=== PATIENT | female | born 1940 | race Caucasian/White ===

== ENCOUNTER 2016-08-01 09:28 | Observation (INO) | payer MEDICARE, OTHER ==
[~2016-08-01] VITALS: Ht 165.1 cm; Wt 81.8 kg
[2016-08-01] VITALS (10 sets, daily range): BP systolic 128–175; BP diastolic 50–114; PULSE 58–75; RESP 11–18; O2SAT 95–98
[~2016-08-01 09:28] MED LIST: AMLO5TAB2 PO; ASPI325T32 PO; ATOR40TA69 PO; CARV12.52 PO; CHOL5000 PO; CLOP75TA28 PO; CRAN200C2 PO; CYCL1DRO BOTH_EYES; D-MA1POW PO; FOLI0.4T2 PO; GABA600T2 PO; GLUT500T8 PO; HYDR-3090 PO; HYDR200T5 PO; LOSA50TA37 PO; MAGN500C4 PO; MELA1TAB11 PO; MULT-666 PO; NITR0.4T SL; UBID300C PO
--- NOTE | 2016-08-01 10:34 | DRSVH ---
PROCEDURE: X-RAY CHEST ONE VIEW, PORTABLE ([id number]) INDICATIONS: DIZZY TECHNIQUE: One view of the chest was acquired. COMPARISON: 08/02/2015 FINDINGS: Surgical changes and devices: None. Lungs and pleura: No pleural effusions or pneumothorax. Lungs are clear. Mediastinum: Mediastinal contours appear normal. Heart size is normal. Bones and chest wall: No suspicious bony lesions. Overlying soft tissues appear unremarkable. IMPRESSION: No acute cardiopulmonary abnormality Dictated by: Dwayne Ayala M.D. on 08/01/2016 at 10:31 Approved by: Dwayne Ayala M.D. on 08/01/2016 at 10:32
[2016-08-01 10:55] LABS: BASOPHILS % (AUTO) 1.6 % (0-3); EOSINOPHILS % (AUTO) 4.6 % (0-5); MONOCYTES % (AUTO) 10.9 % (4-12); Mean Corpuscular Hemoglobin 30.8 pg (27.0-35.0); Mean Corpuscular Volume 93.2 fL (81-100); NEUTROPHILS % (AUTO) 54.4 % (40-74); Platelet Count 325 bil/L (150-400)
[2016-08-01 11:16] LABS: TROPONIN T 0.01 ug/L (0.0-0.011)
[2016-08-01 11:27] LABS: Magnesium 2.4 mg/dL (1.6-2.6)
[2016-08-01 11:39] LABS: APPEARANCE,URINE HAZY (CLEAR,HAZY); COLOR,URINE STRAW (YELLOW); OCCULT BLOOD,URINE TRACE (NEGATIVE)
[2016-08-01 11:40] LABS: UROBILINOGEN,URINE NORMAL (NORMAL)
[2016-08-01] MEDS: 0.9% Sodium Chloride 1,000 ML IV SCH ×4 (11:43→23:30)
--- NOTE | 2016-08-01 13:15 | DRSVH ---
PROCEDURE: CT BRAIN WITHOUT CONTRAST ([id number]) INDICATIONS: possible stroke TECHNIQUE: Noncontrast 4.5 mm thick angled axial sections acquired from the foramen magnum to the vertex, with c oronal reformats. COMPARISON: None. FINDINGS: Image quality: Is , 07/30/2012, 06/23/2008 CSF spaces: Basal cisterns are patent. No extra-axial fluid collections. The ventricles are symmet roe in size and shape. Brain: No intracranial bleeds or masses. Ill-defined decreased attenuation left temporal lobe. There is cerebral volume loss for age, with resultant ventricular and sulcal prominence. There are perive ntricular and deep white matter chronic small vessel ischemic changes. Chronic lacunar infarct right basal ganglia. There is intracranial internal carotid artery atherosclerosis. Skull and face: Calvarium and visualized facial bones appear intact, without suspicious lesions. Sinuses: Visualized sinuses and mastoids are clear. IMPRESSION: 1. No intracranial hemorrhage. 2. There is mild decreased attenuation in the left temporal lobe which could represent acute ischemi a. Edema from cerebritis can also cause this appearance. 3. Age related cerebral atrophy, primarily frontal and unchanged. 4. Chronic lacunar infarct right basal ganglia again noted. Dictated by: Dwayne Ayala M.D. on 08/01/2016 at 13:10 Approved by: Dwayne Ayala M.D. on 08/01/2016 at 13:14
[2016-08-01] MEDS ORDERED: Ondansetron 2 mg/mL 2 mL Inj IVPUSH PRN ×2 (14:35→15:05)
[2016-08-01] MEDS ORDERED: Alum-Mag Hydrox-Simeth 30 mL Suspension PO PRN ×2 (14:35→15:05)
[2016-08-01] MEDS ORDERED: Nitroglycerin 2% 1 Gm Ointment TOPICAL ONE (14:40)
--- NOTE | 2016-08-01 14:45 | ED.REPORT ---
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 Yesterday that patient had a bout of chest pain occurring at rest and took a nitro, this is described as family as not entirely unusual, the patient typically takes a nitro once every 2-3 weeks for chest pain occurring at rest. The patient states that she has been sleeping more than normal and family describes her as slurring words but answering questions appropriately. The patient has a neurogenic bladder requiring in and out cath and believes she may have a UTI after yesterday discovering cloudy urine. The patient had a bout of diarrhea yesterday which is unusual as well as a mild nausea today. The patient also mentioned pain behind her eye occurring yesterday and lasting 1 minute, without any reported change in her vision. Family has not noticed unilateral weakness. Nursing Notes Stated Complaint: DIZZINESS Chief Complaint: Chest Pain Nursing Notes Reviewed: Yes Allergies: Coded Allergies: Contrast Media (Verified Allergy, Severe, 08/01/16) codeine (Verified Allergy, Severe, 08/01/16) lactose (Verified Allergy, Severe, 08/01/16) chocolate flavor (Verified Allergy, Mild, HIVES, 08/01/16) Iodine and Iodide Containing Produc (Verified Allergy, Unknown, 08/01/16) Sulfa (Sulfonamide Antibiotics) (Verified Allergy, Unknown, 08/01/16) hydrocodone (Verified Adverse Reaction, Severe, 08/01/16) PT STATES SHE CAN TAKE BRAND VICODIN HOWEVER Opium (Verified Adverse Reaction, Intermediate, 08/01/16) ITCHING FROM OPIATE AGONISTS Scheduled Amlodipine (Amlodipine) 5 Mg Tablet 10 MG PO HS Aspirin (Aspirin) 325 Mg Tablet 325 MG PO DAILY Atorvastatin Calcium (Atorvastatin Calcium) 40 Mg Tablet 40 MG PO HS Carvedilol (Carvedilol) 12.5 Mg Tablet 12.5 MG PO BID Cholecalciferol (Vitamin D3) (Vitamin D3) 5,000 Unit Capsule 5,000 UNIT PO DAILY Clopidogrel (Clopidogrel) 75 Mg Tablet 75 MG PO DAILY Cranberry Extract (Cranberry) 200 Mg Capsule 600 MG PO BID Cyclosporine (Restasis) 1 Each Droperette 1 EACH BOTH_EYES BID D-Mannose (D-Mannose) 1 Gm Powder Unknown Dose PO TID Folic Acid (Folic Acid) 0.4 Mg Tablet 0.4 MG PO DAILY Gabapentin (Gabapentin) 600 Mg Tablet 600 MG PO BID to TID Glutamine (l-Glutamine) 500 Mg Tablet 500 MG PO DAILY Hydroxychloroquine Sulfate (Hydroxychloroquine Sulfate) 200 Mg Tablet 200 MG PO DAILY Losartan Potassium (Losartan Potassium) 50 Mg Tablet 50 MG PO BID Magnesium Oxide (Magnesium) 500 Mg Capsule 500 MG PO DAILY Multivitamin (Once Daily) 1 Each Tablet 1 EACH PO DAILY Ubidecarenone (Co Q-10) 300 Mg Capsule 300 MG PO DAILY Scheduled PRN Hydrocodone-Acetaminophen 5-300 mg (Hydrocodone-Acetaminophen 5-300 mg) 1 Each Tablet 1 TABLET PO q6 hours PRN PRN For Pain Melatonin/Pyridoxine (Melatonin 3 mg Tablet) 1 Each Tablet 1 EACH PO HS PRN PRN For Sleep Nitroglycerin SL (Nitrostat) 0.4 Mg Tab.subl 0.4 MG SL Q5MIN PRN PRN For Chest Pain General Time Seen by MD: 10:20 Chief Complaint Not feeling well, Other (dysarthria and fatigue) Hx Obtained From: Patient, Spouse, Daughter Arrived By: Walk-in Sudden in Onset?: No Onset Occurred: 2 days ago Symptom Duration: Since onset Location: : Chest Quality: Heaviness, Painful Radiation: : Does not radiate Severity: Current: No pain currently Severity: Maximum: Mild Associated with: Reports: Speech abnormal Recent Healthcare: Recent doctor visit Similar Sx Previous: Yes Past Medical History Past Medical History 1. Hypertension. 2. Mild dyslipidemia. Cholesterol 182, HDL 43, cholesterol/HDL ratio 4.2, LDL 111 (June 24, 2008). The patient is not currently on statin therapy. 3. Peripheral arterial disease. In 1989, the patient underwent end arterectomy for severe atherosclerosis of the aorta/iliac bifurcation. 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 The patient has lost control of her bowel and bladder. She can stand for pivots and transfers. 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 4. Normal nuclear medicine stress test (January 14, 2008). 5. Aortic valve disease. Echocardiogram (07/31/2012) showed ejection fraction estimated to be 60-65%. The aortic valve is sclerotic and shows some degree of functional abnormality. Moderate aortic regurgitation. No significant change since previous study in 2008 6. Questionable rheumatoid arthritis. 7. CVA 8. CAD Reports: Coronary artery disease, GERD, Hyperlipidemia, Hypertension, Stroke Reports: Thyroid disease, Urinary tract infection Past Surgical History aortic embolectomy femoral artery shunt placement Reports: Angioplasty Family History Family history is extensively positive for coronary artery disease. Smoking History Former Smoker Social History Stopped smoking in 1989. She does not consume alcohol. She lives in a private residence. Alcohol Use: Denies alcohol use Drug Use: Denies drug use Other Social History: Good social support Ambulatory Status Wheelchair Review of Systems Full Review of Systems Constitutional: Denies: Chills, Fever Eyes: Reports: Eye pain right (not currently, occurred for 1 hr 07/31/16), Denies: Blurred bilateral, Visual loss bilateral Ears / Nose / Throat: Reports: Nasal congestion, Denies: Ear ringing bilateral, Hearing loss bilateral, Sore throat Respiratory: Reports: Non-productive cough, Denies: Hemoptysis, Pleuritic pain, Shortness of breath Cardiovascular: Reports: Chest pain, Edema, Denies: Palpitations GI: Reports: Diarrhea, Nausea, Denies: Abdominal pain, Hematemesis, Hematochezia, Vomiting Female: Denies: Flank pain, Hematuria, Incontinence Musculoskeletal: Denies: Extremity pain, Extremity swelling Hematologic: Denies Bleeding, Denies Bruising Endocrine: Denies: Heat intolerance, Weight gain, Weight loss Skin: Denies Rash, Denies Unexplained bruises Allergy / Immune: Reports: Rhinorrhea, Denies: Hives, Itching Neurologic: Reports: Lightheaded, Slurred speech, Denies: Dizziness, Focal weakness, Headache, Spinning sensation, Syncope Psychiatric: Denies: Agitation, Confusion Complete sys rev & neg: except as marked. Physical Exam Vital Signs Vital Signs Date Time Temp Pulse Resp B/P Pulse Ox O2 Delivery O2 Flow Rate FiO2 08/01/16 14:30 75 14 149/68 96 Nasal Cannula 2 08/01/16 14:14 68 14 140/114 97 Nasal Cannula 2 08/01/16 13:21 65 15 154/80 96 Nasal Cannula 08/01/16 11:56 58 11 143/55 98 Nasal Cannula 2 08/01/16 09:32 36.3 67 15 175/80 95 Room Air Initial VS: Reviewed General/Constitutional: Awake, Alert (when speaking directly to patient), No acute distress, Cooperative, Not toxic appearing Alertness: Positive: Somnolent (when interviewing family), Negative: Confused, Disoriented Appearance / Presentation: Positive: Debilitated Head / Eyes: Normocephalic, PERRL, EOMI, No scleral icterus, Conjunctiva NL ENT: Airway patent, Mucous membranes moist, Pharynx NL Neck: Supple, No meningismus, Full range of motion, No swelling, Non-tender, No masses Respiratory / Chest: Breath sounds = bilat, No respiratory distress, No rhonchi , No wheezing, No stridor, No chest tenderness Diminished Breath Sounds: Positive: Decreased bilateral Cardiovascular: Heart rate NL, Regular rhythm, Peripheral circulation NL, Pulses = bilaterally Heart Sounds / Murmur: Positive: Systolic murmur present.. Lower Ext Edema: Positive: Right 1+ Abdomen: Soft, Non-tender, No guarding, No rebound, BS normoactive Neurologic: Oriented X3, Speech NL, CN II - XII intact, Memory NL Focal Weakness: Positive: Lower extremity bilat (reported chronic), Negative: Pronator drift L, Pronator drift R no new focal neuro deficits Mini Mental status exam - correct serial 7s, correct spelling forwards and backwards, correct clock draw, correct 3 object recall at 2 and 5 minutes, correct following of directions Psychiatric: Affect NL, Mood NL, Cognitive function NL, Judgment/insight NL, Thought content NL Abnormal Mood/Affect: Positive: Labile Interpretation & Diagnostics Lab Results Interpretation Result Diagram: 08/01/16 1045 08/01/16 1045 Test 08/01/16 10:45 08/01/16 11:26 08/01/16 14:50 White Blood Count 6.3th/mm3 (3.8-10.1) Red Blood Count 4.55mil/mm3 (3.90-5.20) Hemoglobin 14.0g/dL (12.0-15.6) Hematocrit 42.4% (35.0-46.0) Mean Corpuscular Volume 93.2fL (81-100) Mean Corpuscular Hemoglobin 30.8pg (27.0-35.0) Mean Corpuscular Hemoglobin Concent 33.0% (32.0-37.0) Red Cell Distribution Width 13.6% (12.3-15.4) Platelet Count 325bil/L (150-400) Neutrophils (%) (Auto) 54.4% (40-74) Lymphocytes (%) (Auto) 28.3% (14-46) Monocytes (%) (Auto) 10.9% (4-12) Eosinophils (%) (Auto) 4.6% (0-5) Basophils (%) (Auto) 1.6% (0-3) Sodium Level 141mEq/L (134-144) Potassium Level 4.1mEq/L (3.5-5.2) Chloride Level 104mEq/L (97-108) Carbon Dioxide Level 25mmol/L (18-29) Blood Urea Nitrogen 11mg/dL (8-27) Creatinine 0.62mg/dL (0.57-1.00) Estimat Glomerular Filtration Rate 134mL/min (>59) Glucose Level 96mg/dL (60-99) Calcium Level 9.2mg/dL (8.5-10.1) Magnesium Level 2.4mg/dL (1.6-2.6) Total Bilirubin 0.3mg/dL (0.0-1.2) Aspartate Amino Transf (AST/SGOT) 18U/L (0-50) Alanine Aminotransferase (ALT/SGPT) 10U/L (0-32) Alkaline Phosphatase 106U/L (25-165) Total Protein 6.9g/dL (6.4-8.4) Albumin 4.0g/dL (3.4-5.0) Procalcitonin 0.05ng/mL (0.00-0.08) Urine Color Straw (YELLOW) Urine Appearance Hazy (CLEAR,HAZY) Urine pH 7.0 (5.0-8.0) Urine Specific [place] 1.005 (1.003-1.035) Urine Protein Negativemg/dL (NEG,TRACE) Urine Glucose (UA) Negativemg/dL (NEGATIVE) Urine Ketones Negativemg/dL (NEGATIVE) Urine Occult Blood Trace (NEGATIVE) Urine Nitrite Negative (NEGATIVE) Urine Bilirubin Negative (NEGATIVE) Urine Urobilinogen Normalmg/dL (NORMAL) Urine Leukocyte Esterase Trace (NEGATIVE) Urine RBC 0-2/hpf (0-2) Urine WBC 0-5/hpf (0-5) Urine Epithelial Cells Occasional/hpf (NONE-MOD) Urine Crystals None seen (NONE SEEN) Urine Bacteria Moderate/hpf (NONE-FEW) Urine Hyaline Casts None/lpf (NONE) Urine Granular Casts None seen (NONE SEEN) Urine Waxy Casts None seen (NONE SEEN) Urine Red Blood Cell Casts None seen (NONE SEEN) Urine White Blood Cell Casts None seen (NONE SEEN) Urine Mucus None seen (None Seen) Urine Trichomonas None seen (NONE SEEN) Urine Yeast None (NONE SEEN) Urinalysis Comment None Urine Culture Reflexed Indicated Re-Eval/Medical Decision Med Decision/Clinical Course 76yoF with known significant vascular disease presents with two days of increasing lethergy and report of slurred speech. CBC, CMP, and UA are negative for UTI, Anemia, and electrolyte abnormalities. NIH stroke scale is 0 with lower extremities difficult to test due to paraplegia. Patient has also had high blood pressures this week and some chest pain at rest which is not out of the ordinary per history. Troponin and EKG negative for cardiac ischemia. CT shows likely diagnosis of possible stroke v cerebritis. Patient has had one recurrence in the ED of chest pain relieved by a single Nitro. Repeat troponin pending. For ischemic stroke >24hr no clinical indicated for permissive HTN, so one time Nitro paste patch placed. Discharge & Departure Primary Impression: CVA (cerebral vascular accident) Additional Impressions: Unstable angina Aortic stenosis Ruled Out: Myocardial infarct Disposition: ADMITTED TO HOSPITAL Discharge Condition All VS Reviewed: Yes Condition: Stable Referrals: OTHER,PHYSICIAN (PCP) (Family) Attending Statement The patient was seen and examined together with Dr. Santoro on 08/01/16 and I have added additional information to the note above. Risk Factors NIH Stroke Scale Level of Consciousness: Alert and responsive (0) Ask Month & Age: Both questions right (0) Open/Close Eyes/Hand Bioinformatics Specialist: Performs both tasks (0) Horizontal EO Movements: None (0) Visual Youssef: No visual loss (0) Facial Palsy: Normal symmetry (0) Right Arm Motor Drift (10s): No drift 10 sec (0) Left Arm Motor Drift (10s): No drift 10 sec (0) Right Leg Motor Drift (5s): Untestable (0) (parapeligia) Left Leg Motor Drift (5s): Untestable (0) (parapalegia) Limb Ataxia FNF/Heel-Mcgill: No ataxia (0) (in upper extremities, unable to assess LE) Sensation (Arms/Legs/Face): No sensory loss (0) Language Aphasia: No aphasia, normal (0) Dysarthria: No dysarthria, normal (0) Extinction/Inattention: No exctinct/inattent (0) NIHSS Score: 0 Time NIHSS Performed: 11:20 Date NIHSS Performed: Aug 01, 2016 Everett Santoro DO Aug 01, 2016 10:47 Jim Verma DO Aug 01, 2016 15:13
[2016-08-01] MEDS ORDERED: Polyethylene Glycol (PEG) 17 Gm Powder PO PRN (15:05)
[2016-08-01] MEDS ORDERED: CALCIT PO (15:36)
[2016-08-01] MEDS ORDERED: FLUO120C4 TOPICAL (15:36)
[2016-08-01] MEDS ORDERED: MELA1TAB4 SL (15:36)
--- NOTE | 2016-08-01 15:43 | PCM.HPMED ---
Subjective Date of Service Aug 01, 2016 Primary Provider: Admitting Physician: Jose Luis Johnson MD Primary Care Physician: Other,Physician Attending Physician: Jose Luis Johnson MD Chief Complaint: Slurred speech, chest pain History of Present Illness: This is a 76 female with past medical history of functional paraplegia following endovascular surgical complication , hypertension, hyperlipidemia, coronary artery disease status post stenting. Patient presented to the hospital complaining about his speech for 2 days and not feeling herself and being lethargic as she was drunk. The patient states that she has been sleeping more than normal and family describes her as slurring words but answering questions appropriately. She was living alone chest pain that occur once yesterday, chest pain is retrosternal and radiated, 6 out of 10 intensity 2 minutes approximately. She called in about another episode of chest pain while in the emergency room. Any CT scan of the head showed lacunar infarct and decreased attenuation in the left temporal lobe which could represent acute ischemia. Edema from cerebritis can also cause this appearance. As the results and emergency room . Her NIH score was basically 0. Her systolic blood pressure was above 200. Patient is being admitted to the hospital for appropriate care , blood pressure management , chest pain and further workup. Review of Systems: Comprehensive review is negative except for what is described above in history of present illness Allergies Coded Allergies: Contrast Media (Verified Allergy, Severe, 08/01/16) codeine (Verified Allergy, Severe, 08/01/16) lactose (Verified Allergy, Severe, 08/01/16) chocolate flavor (Verified Allergy, Mild, HIVES, 08/01/16) Iodine and Iodide Containing Produc (Verified Allergy, Unknown, 08/01/16) Sulfa (Sulfonamide Antibiotics) (Verified Allergy, Unknown, 08/01/16) hydrocodone (Verified Adverse Reaction, Severe, 08/01/16) PT STATES SHE CAN TAKE BRAND VICODIN HOWEVER Opium (Verified Adverse Reaction, Intermediate, 08/01/16) ITCHING FROM OPIATE AGONISTS Home Medications ITCHING FROM OPIATE AGONISTS Scheduled Amlodipine (Amlodipine) 5 Mg Tablet 10 MG PO HS Aspirin (Aspirin) 325 Mg Tablet 325 MG PO DAILY Atorvastatin Calcium (Atorvastatin Calcium) 40 Mg Tablet 40 MG PO HS Carvedilol (Carvedilol) 12.5 Mg Tablet 12.5 MG PO BID Cholecalciferol (Vitamin D3) (Vitamin D3) 5,000 Unit Capsule 5,000 UNIT PO DAILY Clopidogrel (Clopidogrel) 75 Mg Tablet 75 MG PO DAILY Cranberry Extract (Cranberry) 200 Mg Capsule 600 MG PO BID Cyclosporine (Restasis) 1 Each Droperette 1 EACH BOTH_EYES BID D-Mannose (D-Mannose) 1 Gm Powder Unknown Dose PO TID Folic Acid (Folic Acid) 0.4 Mg Tablet 0.4 MG PO DAILY Gabapentin (Gabapentin) 600 Mg Tablet 600 MG PO BID to TID Glutamine (l-Glutamine) 500 Mg Tablet 500 MG PO DAILY Hydroxychloroquine Sulfate (Hydroxychloroquine Sulfate) 200 Mg Tablet 200 MG PO DAILY Losartan Potassium (Losartan Potassium) 50 Mg Tablet 50 MG PO BID Magnesium Oxide (Magnesium) 500 Mg Capsule 500 MG PO DAILY Multivitamin (Once Daily) 1 Each Tablet 1 EACH PO DAILY Ubidecarenone (Co Q-10) 300 Mg Capsule 300 MG PO DAILY PMH 1. Hypertension. 2. Mild dyslipidemia. 3. Peripheral arterial disease. 4. Normal nuclear medicine stress test (January 14, 2008). 5. Aortic valve disease. Echocardiogram (07/31/2012) showed ejection fraction estimated to be 60-65%. The aortic valve is sclerotic and shows some degree of functional abnormality. Moderate aortic regurgitation. No significant change since previous study in 2008 6. Questionable rheumatoid arthritis. 7. CVA 8. CAD 9. Coronary artery disease 10 GERD 11. Hyperlipidemia 12. Hypertension 13. Stroke Surgical History aortic embolectomy femoral artery shunt placement Reports: Angioplast Family History Family history reviewed and it is pertinent for coronary artery disease Social History Hx Alcohol Use: No Hx Substance Use: No Hx Tobacco Use: Yes (quit 1989) Smoking Status: Former Smoker Exam Vital Signs Vital Sign - Last Date Time Temp Pulse Resp B/P Pulse Ox O2 Delivery O2 Flow Rate FiO2 08/01/16 14:30 75 14 149/68 96 Nasal Cannula 2 08/01/16 09:32 36.3 Exam General: Comfortably no acute distress. HEENT: PERRL. Sclerae anicteric. Neck: Supple, no JVD no carotid bruit, no cervical lymphadenopathy. Chest: Respiratory effort, no chest wall tenderness. Lung: Clear bilaterally no wheezing. Heart:S1, S2, regular rate and rhythm no gallop. There is a harsh systolic murmur best heard right second intercostal space. Abdomen: bowel sounds normal all quadrant, non-tender, non-distended Extremities: No cyanosis, no edema. Neuro : Paraplejic. B/L LE weakness and decreased sensation. Cranial nerves grossly nonfocal. Skin : No rash, no ulcers. Lab and Diagnostics Result Diagram: 08/01/16 1045 08/01/16 1045 X-Rays, CTs and MRIs CT scan of the brain reviewed : 1. No intracranial hemorrhage. 2. There is mild decreased attenuation in the left temporal lobe which could represent acute ischemia. Edema from cerebritis can also cause this appearance. 3. Age related cerebral atrophy, primarily frontal and unchanged. 4. Chronic lacunar infarct right basal ganglia again noted. Chest X-ray reviewed; no acute cardio-pulmonary disease Assessment & Plan 1 -.-Acute CVA : Patient presented his speech and out of window for TPA. CT scan: Positive for acute CVA. Unable to obtain CT angiogram due to contrast dye allergy. Brain MRI pending. Nothing by mouth until evaluated by speech and swallow and then start cardiac diet. Aspirin 81 mg PO daily. PT and OT evaluation. TSH, lipid profile, Hemoglobin A1c 2. Chest pain : Initial cardiac and is negative. No EKG finding. Patient is known to have coronary artery disease status post stenting 2 months ago ( Debate Director Dr. Haas) Initial set of troponin is negative. Would obtain set of troponin is positive we will consult cardiology for assessment. Chest pain is likely secondary to uncontrolled hypertension. Patient presented to the hospital if his systolic pressure above 200 2. Hypertension : aspirin. Blood pressure systolic 150 during the time of examination. Monitor blood pressure and adjust antihypertensive medications for BP control ( Systolic Goal 130 ) 3. History of coronary artery disease status post stenting : As above . Continue Plavix, SAGAR inhibitor, beta daisy and statin 4. Peripheral vascular disease status post surgery This is a 70 6:00 region from the hospital with sinus CVA versus TIA. She has slurred speech and difficulty finding her words prior to admission. CT scan showed :There is mild decreased attenuation in the left temporal lobe which could represent acute ischemia. Edema from cerebritis can also cause this appearance. MRI of the head Plan of care as above and will be adjusted as per clinical course . I discussed with nursing staff in Er to obtain meds list at [facility] . Patient is Do not intubate . Pain Evaluation: Adequate Pain Control VTE Prophylaxis: Sub-Q Enoxaparin Resuscitation Status: Limited Interventions (Do not intubate ) Time spent 75 minutes Jose Luis Johnson MD Aug 01, 2016 15:43
--- NOTE | 2016-08-01 15:45 | NUR ---
Admit Pt arrived via stretcher from ER and daughter present to MRI at 1630 on stretcher and returned in about 30 minutes. Nurse swallow screen completed and passed. Willing to sign the form to eat dinner prior to the MAMMOGRAPHER screen, instead MD wrote for heart healthy diet. No c/o pain since arrival to floor. Nitro paste patch on mid chest on left in place. Took patients own vicoden to pharmacy to be checked as has allergy to generic. Left there - if patient needs a pain pill, will need to go down and sign the pill out. 12 tablets in the bottle, checked with the pharmacist.
--- NOTE | 2016-08-01 17:53 | DRSVH ---
PROCEDURE: MRI BRAIN WITH AND WITHOUT CONTRAST ([id number]) INDICATIONS: CVA TECHNIQUE: Noncontrast axial T1 spin echo, axial T2 fast spin echo, sagittal and axial FLAIR, coronal T2 fast sp in echo, axial gradient echo, axial diffusion and ADC through the brain. After the administration of contrast, axial and coronal T1 spin echo with fat saturation through the brain. COMPARISON: None. FINDINGS: Image quality: Excellent. CSF spaces: Basal cisterns are patent. No extra-axial fluid collections. Ventricles are normal in size and shape. Brain: No midline shift. No intracranial bleeds or masses. Presumed right basilar lacunar infarct, chronic. No abnormal intracranial enhancement. There is cerebral volume loss for age. There is madisyn ventricular white matter chronic small vessel ischemic change. The brainstem appears normal. Diffus ion-weighted images demonstrate no acute ischemic insults. No chronic ischemic insults. Normal intr avascular flow voids are present. Skull and face: Calvarial marrow is normal in signal. Orbits appear normal. Sinuses: Sinuses and mastoids appear clear. IMPRESSION: No evidence of acute ischemia No abnormal enhancement. Age related global volume loss. Dictated by: Miguel Astorga M.D. on 08/01/2016 at 17:48 Approved by: Miguel Astorga M.D. on 08/01/2016 at 17:52
[2016-08-01] MEDS: VICODIN PO PRN (20:39)
[2016-08-02 00:18] VITALS: BP 150/69; PULSE 78; RESP 17; O2SAT 94
[2016-08-02] MEDS: 0.9% Sodium Chloride 1,000 ML IV SCH ×2 (03:30→07:30)
[2016-08-02] MEDS: VICODIN PO PRN (05:31)
[2016-08-02 06:09] VITALS: BP 171/72; PULSE 78; RESP 16; O2SAT 96
--- NOTE | 2016-08-02 07:07 | NUR ---
Pain / Med Pt reported increasing pain in buttock and legs. Pt own vicodin is down in the pharmacy, so if she needs a dose, a nurse has to go down to the pharmacy and get one dose from a pharmacist. Pt states relief with each dose.
[2016-08-02 07:17] LABS: TROPONIN T 0.01 ug/L (0.0-0.011)
--- NOTE | 2016-08-02 09:14 | NUR ---
Evaluation completed. Please go to "Notes" then click on "Assessments and Notes" (bottom left corner of screen). Then select appropriate discipline tab on top of screen.
[2016-08-02 10:18] VITALS: PULSE 65
--- NOTE | 2016-08-02 10:21 | PCM.DIMED ---
Discharge Instructions Date of Service Aug 02, 2016 Dates of Hospitalization Aug 01, 2016 at 15:03 Discharge Diagnosis Discharge Diagnosis # Transient altered speech and mental status of unclear exact etiology but possibly acute transient ischemic attack (TIA) vs medication side effect vs other etiology. Resolved. # Acute chest pain. present on admission. Resolved. - Ruled out for acute myocardial infarction with negative cardiac enzymes # Chronic hypertension with presenting acute hypertensive urgency, improved # History of coronary artery disease status post stenting # Peripheral vascular disease status post surgery Diet Low fat, Low Sodium, Heart Healthy Activity No restrictions Call your provider Fever or Chills, Shortness of breath, Bleeding, Chest pain, Vomitting, Weakness (unilateral) Patient Instructions Seek immediate medical attention if any new or worsening signs or symptoms occur. Follow-up plan 1. Followup with primary care provider in 2 days as previously scheduled. Tay Rose Aug 02, 2016 10:21
--- NOTE | 2016-08-02 11:06 | NUR ---
Case Management: SN[place] and Medicare Part D info given and explained to pt at bedside today at 10:25 am. Pt's and dtr also present. Copies given to pt and original SNOWDEN placed in hard chart. ANGELA Barrios RN
--- NOTE | 2016-08-02 11:40 | NUR ---
Discharge Pt discharged at 1135. She was given discharge instructions and instructions for follow up care. She confirmed understanding of these instructions as did her and daughter who were at the bedside. She was given no prescriptions to take with her. Her IV was discontinued, her [place] catheter was removed. Her prescription medication from home was returned to her. She left with all of her possessions. Her family brought her to the car via wheelchair, they declined any assistance to their vehicle.
--- NOTE | 2016-08-02 16:15 | PCM.DC.MED ---
Discharge Summary Date of Service Aug 02, 2016 Dates of Hospitalization Date of Hospital Admission Aug 01, 2016 at 15:03 Date of Discharge: Aug 02, 2016 Providers: Admitting Physician: Jose Luis Johnson MD Primary Care Physician: Other,Physician Attending Physician: Jose Luis Johnson MD Diagnosis at Time of Discharge Diagnosis at Time of Discharge # Transient altered speech and mental status of unclear exact etiology but possibly acute transient ischemic attack (TIA) vs medication side effect vs other etiology. Resolved. # Acute chest pain. present on admission. Resolved. - Ruled out for acute myocardial infarction with negative cardiac enzymes # Chronic hypertension with presenting acute hypertensive urgency, improved # History of coronary artery disease status post stenting # Peripheral vascular disease status post surgery Procedures XRay, CTs & MRIs Date of Service: 08/01/16 1505 PROCEDURE: MRI BRAIN WITH AND WITHOUT CONTRAST ([id number]) IMPRESSION: No evidence of acute ischemia No abnormal enhancement. Age related global volume loss. Dictated by: Miguel Astorga M.D. on 08/01/2016 at 17:48 Approved by: Miguel Astorga M.D. on 08/01/2016 at 17:52 Date of Service: 08/01/16 1218 PROCEDURE: CT BRAIN WITHOUT CONTRAST ([id number]) IMPRESSION: 1. No intracranial hemorrhage. 2. There is mild decreased attenuation in the left temporal lobe which could represent acute ischemia. Edema from cerebritis can also cause this appearance. 3. Age related cerebral atrophy, primarily frontal and unchanged. 4. Chronic lacunar infarct right basal ganglia again noted. Dictated by: Dwayne Ayala M.D. on 08/01/2016 at 13:10 Approved by: Dwayne Ayala M.D. on 08/01/2016 at 13:14 Date of Service: 08/01/16 0950 PROCEDURE: X-RAY CHEST ONE VIEW, PORTABLE ([id number]) IMPRESSION: No acute cardiopulmonary abnormality Dictated by: Dwayne Ayala M.D. on 08/01/2016 at 10:31 Approved by: Dwayne Ayala M.D. on 08/01/2016 at 10:32 Brief History As noted in H&P by Dr. 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 Patient presented to the hospital complaining about his speech for 2 days and not feeling herself and being lethargic as she was drunk. The patient states that she has been sleeping more than normal and family describes her as slurring words but answering questions appropriately. She was living alone chest pain that occur once yesterday, chest pain is retrosternal and radiated, 6 out of 10 intensity 2 minutes approximately. She called in about another episode of chest pain while in the emergency room. Any CT scan of the head showed lacunar infarct and decreased attenuation in the left temporal lobe which could represent acute ischemia. Edema from cerebritis can also cause this appearance. As the results and emergency room . Her NIH score was basically 0. Her systolic blood pressure was above 200. Patient is being admitted to the hospital for appropriate care , blood pressure management , chest pain and further workup. Hospital Course pt's presenting symptoms completely resolved overnight. On the am of discharge patient requesting and demanding to be discharged home. Echo was ordered but patient refusing to wait and wishes to do it as outpatient. She notes that she has a f/u appointment with her PCP in 2 days. PT was also ordered but patient refusing to wait for PT noting that her daughter is a physical therapist and she wishes to f/u as outpatient Neuro exam on day of d/c is non-focal. Lungs CTA bilat. CV RRR Exam Vital Signs (Last) Date Time Temp Pulse Resp B/P Pulse Ox O2 Delivery O2 Flow Rate FiO2 08/02/16 11:35 Supplement Oxygen 08/02/16 10:18 65 08/02/16 06:09 36.6 16 171/72 96 2.00 Test 08/01/16 10:45 08/01/16 11:26 08/02/16 05:40 White Blood Count 6.3th/mm3 (3.8-10.1) Red Blood Count 4.55mil/mm3 (3.90-5.20) Hemoglobin 14.0g/dL (12.0-15.6) Hematocrit 42.4% (35.0-46.0) Mean Corpuscular Volume 93.2fL (81-100) Mean Corpuscular Hemoglobin 30.8pg (27.0-35.0) Mean Corpuscular Hemoglobin Concent 33.0% (32.0-37.0) Red Cell Distribution Width 13.6% (12.3-15.4) Platelet Count 325bil/L (150-400) Neutrophils (%) (Auto) 54.4% (40-74) Lymphocytes (%) (Auto) 28.3% (14-46) Monocytes (%) (Auto) 10.9% (4-12) Eosinophils (%) (Auto) 4.6% (0-5) Basophils (%) (Auto) 1.6% (0-3) Sodium Level 141mEq/L (134-144) Potassium Level 4.1mEq/L (3.5-5.2) Chloride Level 104mEq/L (97-108) Carbon Dioxide Level 25mmol/L (18-29) Blood Urea Nitrogen 11mg/dL (8-27) Creatinine 0.62mg/dL (0.57-1.00) Estimat Glomerular Filtration Rate 134mL/min (>59) Glucose Level 96mg/dL (60-99) Hemoglobin A1c 5.6% (4.8-5.6) Calcium Level 9.2mg/dL (8.5-10.1) Magnesium Level 2.4mg/dL (1.6-2.6) Total Bilirubin 0.3mg/dL (0.0-1.2) Aspartate Amino Transf (AST/SGOT) 18U/L (0-50) Alanine Aminotransferase (ALT/SGPT) 10U/L (0-32) Alkaline Phosphatase 106U/L (25-165) Total Protein 6.9g/dL (6.4-8.4) Albumin 4.0g/dL (3.4-5.0) Procalcitonin 0.05ng/mL (0.00-0.08) Urine Color Straw (YELLOW) Urine Appearance Hazy (CLEAR,HAZY) Urine pH 7.0 (5.0-8.0) Urine Specific [place] 1.005 (1.003-1.035) Urine Protein Negativemg/dL (NEG,TRACE) Urine Glucose (UA) Negativemg/dL (NEGATIVE) Urine Ketones Negativemg/dL (NEGATIVE) Urine Occult Blood Trace (NEGATIVE) Urine Nitrite Negative (NEGATIVE) Urine Bilirubin Negative (NEGATIVE) Urine Urobilinogen Normalmg/dL (NORMAL) Urine Leukocyte Esterase Trace (NEGATIVE) Urine RBC 0-2/hpf (0-2) Urine WBC 0-5/hpf (0-5) Urine Epithelial Cells Occasional/hpf (NONE-MOD) Urine Crystals None seen (NONE SEEN) Urine Bacteria Moderate/hpf (NONE-FEW) Urine Hyaline Casts None/lpf (NONE) Urine Granular Casts None seen (NONE SEEN) Urine Waxy Casts None seen (NONE SEEN) Urine Red Blood Cell Casts None seen (NONE SEEN) Urine White Blood Cell Casts None seen (NONE SEEN) Urine Mucus None seen (None Seen) Urine Trichomonas None seen (NONE SEEN) Urine Yeast None (NONE SEEN) Urinalysis Comment None Urine Culture Reflexed Indicated Troponin T 0.010ug/L (0.0-0.011) Triglycerides Level 100mg/dL (0-149) Cholesterol Level 199mg/dL (100-199) LDL Cholesterol, Calculated 116.000mg/dL (0-99) VLDL Cholesterol 20.000mg/dL HDL Cholesterol 63mg/dL (>39) Cholesterol/HDL Ratio 3.16 (0.0-4.4) Discharge Medications Discharge Medications Amlodipine (Amlodipine) 5 Mg Tablet 10 MG PO HS (Reported) Aspirin (Aspirin) 325 Mg Tablet 325 MG PO HS (Reported) Calcium Citrate (Calcium Citrate) 250 Mg Tablet 250 MG PO HS (Reported) Carvedilol (Carvedilol) 12.5 Mg Tablet 12.5 MG PO BID (Reported) Cholecalciferol (Vitamin D3) (Vitamin D3) 5,000 Unit Capsule 5,000 UNIT PO DAILY (Reported) Clopidogrel (Clopidogrel) 75 Mg Tablet 75 MG PO DAILY Prescribed by: DIDI REGAN DO Cranberry Extract (Cranberry) 200 Mg Capsule 600 MG PO BID (Reported) Cyclosporine (Restasis) 1 Each Droperette 1 EACH BOTH_EYES BID (Reported) D-Mannose (D-Mannose) 1 Gm Powder Unknown Dose PO DAILY (Reported) Glutamine (l-Glutamine) 500 Mg Tablet 500 MG PO DAILY (Reported) Hydroxychloroquine Sulfate (Hydroxychloroquine Sulfate) 200 Mg Tablet 200 MG PO DAILY (Reported) Losartan Potassium (Losartan Potassium) 50 Mg Tablet 50 MG PO BID (Reported) Magnesium Oxide (Magnesium) 500 Mg Capsule 500 MG PO DAILY (Reported) Multivitamin (Once Daily) 1 Each Tablet 1 EACH PO DAILY (Reported) Ubidecarenone (Co Q-10) 300 Mg Capsule 300 MG PO DAILY (Reported) As needed Fluocinonide 0.01% Cream (Fluocinonide 0.01% Cream) 120 Gm Cream..g. 1 APPLIC TOPICAL BID PRN PRN prn (Reported) Gabapentin (Gabapentin) 600 Mg Tablet 600 MG PO TID PRN PRN For Pain (Reported) Hydrocodone-Acetaminophen 5-300 mg (Hydrocodone-Acetaminophen 5-300 mg) 1 Each Tablet 1 TABLET PO q6 hours PRN PRN For Pain (Reported) Melatonin/Pyridoxine (Melatonin Sublingual Tablet) 1 Each Tab.subl 1 EACH SL HS PRN PRN For Sleep (Reported) Nitroglycerin SL (Nitrostat) 0.4 Mg Tab.subl 0.4 MG SL Q5MIN PRN PRN For Chest Pain Prescribed by: DIDI REGAN DO Followup Plan Disposition: Home Follow-up plan 1. Followup with primary care provider in 2 days as previously scheduled. Discharge Diet: Low fat, Low Sodium, Heart Healthy Discharge Activity: No restrictions Patient Instructions Seek immediate medical attention if any new or worsening signs or symptoms occur. Time spent 30 min Tay Rose Aug 02, 2016 16:15
== END 2016-08-02 11:30 | disposition home or self-care (01) ==
LOC: SED 09:28 → MOC 15:03
PROVIDERS: ADMIT Internal Medicine; ATTEND Internal Medicine
DX: R47.81 Slurred speech (principal); R41.82 Altered mental status, unspecified; R07.89 Other chest pain; I16.0 Hypertensive urgency; I10 Essential (primary) hypertension; I25.10 Atherosclerotic heart disease of native coronary artery without angina pectoris; Z95.5 Presence of coronary angioplasty implant and graft; G82.20 Paraplegia, unspecified; T81.89XS Other complications of procedures, not elsewhere classified, sequela
CPT/HCPCS: 36415; 70450; 70553; 71010; 80053; 80061; 81000; 82308; 83036; 83735; 84484; 85025; 87086; 87088; 87186; 93005; 96360; 97166; 99285; A9585; G0378; J1650; J7030